=== PATIENT | female | born 1980 | race African-American/Black ===

== ENCOUNTER 2018-10-04 01:49 | Observation (INO) | payer MEDICAID ==
[~2018-10-04] VITALS: Ht 167.6 cm; Wt 113.4 kg
[2018-10-04] MEDS ORDERED: D5W/LACTATED RINGERS 1,000 ML IV SCH (02:30)
[2018-10-04] MEDS ORDERED: D5W/LACTATED RINGERS 1,000 ML IV ONE (02:30)
[2018-10-04] MEDS ORDERED: ONDANSETRON HCL 4 MG/2 ML VIAL IV PRN (02:30)
[2018-10-04 02:36] LABS: Urine Bacteria FEW /hpf (None Seen); Urine Blood Negative /uL (Negative); Urine Mucus FEW (None Seen); Urine Specific Gravity 1.025 (1.001-1.035); Urine WBC 2 /hpf (0 - 5)
[2018-10-04 02:55] LABS: Alcohol, Urine < 3.0 mg/dL (0-5); Amphetamine Screen, Urine NEGATIVE (NEGATIVE); Barbiturate Scree,Urine NEGATIVE (NEGATIVE); Benzodiazephine Screen, Urine NEGATIVE (NEGATIVE); Cannabinoid Screen, Urine NEGATIVE (NEGATIVE); Cocaine Screen, Urine NEGATIVE (NEGATIVE); Opiate Scree,Urine NEGATIVE (NEGATIVE); Phencyclidine Screen, Urine NEGATIVE (NEGATIVE)
[2018-10-04] MEDS ORDERED: PREN-96 PO (03:52)
== END 2018-10-04 04:20 | disposition home or self-care (01) | DRG 566 ==
LOC: LDRP 01:49
PROVIDERS: ADMIT Obstetrics & Gynecology; ATTEND Obstetrics & Gynecology
DX: O21.2 Late vomiting of pregnancy (principal); O26.893 Other specified pregnancy related conditions, third trimester; R19.7 Diarrhea, unspecified; Z3A.30 30 weeks gestation of pregnancy
CPT/HCPCS: 59025; 80307; 81001; 81002; 96361; 96374; G0378; J2405